=== PATIENT | female | born 1990 | race African-American/Black ===

== ENCOUNTER 2017-03-14 17:44 | Emergency (ER) | payer MEDICAID ==
[~2017-03-14] VITALS: Ht 167.6 cm; Wt 74.0 kg
[2017-03-14] MEDS ORDERED: TETANUS, DIPHTHERIA, PERTUSSIS VAC/PF 0.5ML (>7YR OLD) IM ONE (20:30)
[2017-03-14] MEDS ORDERED: ONDANSETRON 4MG ODT PO ONE (20:30)
[2017-03-14] MEDS ORDERED: KETOROLAC 60MG/2ML VIAL IM ONE (20:30)
[2017-03-14 23:11] VITALS: BP 132/75
== END 2017-03-14 23:12 | disposition home or self-care (01) ==
LOC: ER 17:44
DX: S09.90XA Unspecified injury of head, initial encounter (principal); Y93.9 Activity, unspecified; V49.9XXA Car occupant (driver) (passenger) injured in unspecified traffic accident, initial encounter; Y92.410 Unspecified street and highway as the place of occurrence of the external cause; Z23 Encounter for immunization
CPT/HCPCS: 70450; 70486; 72125; 73110; 81025; 90471; 90715; 96372; 99284; J1885; Q0162